=== PATIENT | male | born 1965 | race Caucasian/White ===

== ENCOUNTER → 2018-12-16 | Outpatient (CLI) | payer BC | END | disposition home or self-care (01) | LOC: LABPAT 07:45 | PROVIDERS: ATTEND Urology | DX: Z01.812 Encounter for preprocedural laboratory examination (principal); C61 Malignant neoplasm of prostate | CPT/HCPCS: 36415; 80048; 85025; 86850; 86900; 86901; 93005 ==

== ENCOUNTER 2018-12-25 10:19 | Inpatient (IN) | payer BC ==
[2018-12-16 08:43] LABS: Basophils # (A) 0.1 k/uL (0-0.2); Basophils % (A) 1 %; Eosinophils # (A) 0.2 k/uL (0-0.7); Eosinophils % (A) 2 %; HCT 43.8 % (39.0-53.0); HGB 15.1 gm/dL (13.0-17.5); Lymphocytes # (A) 3.3 k/uL (1.0-4.8); Lymphocytes % (A) 37 %; MCH 28.6 pg (25.0-35.0); MCHC 34.4 g/dL (31.0-37.0); Mean Platelet Volume 6.6; Monocytes # (A) 0.6 k/uL (0-1.0); Monocytes % (A) 7 %; Neutrophils # (A) 4.4 k/uL (1.3-7.7); Neutrophils % (A) 50 %; Platelet Count 312 k/uL (150-450); RBC 5.28 m/uL (4.30-5.90); RDW 14.1 % (11.5-15.5); WBC 8.8 k/uL (3.8-10.6)
[2018-12-16 09:06] LABS: Calcium 9.7 mg/dL (8.4-10.2); Potassium 4.3 mmol/L (3.5-5.1)
[2018-12-19 09:34] VITALS: BMI 34.4
[~2018-12-25 10:19] MED LIST: DEXAMETHASONE SOD PHOSPHATE 10 MG/ML 1 ML VIAL IV ONE; LIDOCAINE 1% 20 ML VIAL (10MG/ML) FOR IV START INTRADERMA PRN; MIDAZOLAM 2 MG/2 ML VIAL IV PRN
[2018-12-25] MEDS: LACTATED RINGERS 1,000 ML IV SCH ×2 (11:35→23:13)
[2018-12-25] MEDS: ONDANSETRON 4 MG/2 ML VIAL IVP ONE ×2 (11:35→17:32)
[2018-12-25] MEDS ORDERED: LIDOCAINE 1% 20 ML VIAL (10MG/ML) FOR IV START INTRADERMA ONE (11:35)
[2018-12-25] MEDS ORDERED: HEPARIN SODIUM,PORCINE 5,000 UNIT/ML 1 ML VIAL SQ ONE (12:00)
--- NOTE | 2018-12-25 12:18 | P.GSHP ---
History of Present Illness H&P Date: 12/25/18 Chief Complaint: Prostate cancer The patient is a 53-year-old white male found to have an elevated PSA level of 4.55. The prostate was palpably normal. He underwent a prostate ultrasound with biopsies, revealing prostate cancer in 8 of 12 biopsies. The majority of the biopsies were [place] 4+3. I had a lengthy discussion with the patient, reviewing alternative treatment options. He has elected to undergo a robotic- assisted laparoscopic prostatectomy and comes for this reason. He has been medically cleared. - Constitutional Constitutional: Denies chills, Denies fever - Cardiovascular Cardiovascular: Reports high blood pressure - Psychiatric Psychiatric: Reports depression Past Medical History Past Medical History: Asthma, Cancer, Hyperlipidemia, Hypertension Additional Past Medical History / Comment(s): prostate ca, melanoma removed History of Any Multi-Drug Resistant Organisms: None Reported Past Surgical History: Orthopedic Surgery, Tonsillectomy Additional Past Surgical History / Comment(s): rt hand index finger, colonoscopies, Past Anesthesia/Blood Transfusion Reactions: No Reported Reaction Smoking Status: Never smoker - Past Family History Father Family Medical History: Cancer Additional Family Medical History / Comment(s): melanoma Medications and Allergies Home Medications Medication Instructions Recorded Confirmed Type Albuterol Inhaler [Ventolin Hfa 1 puff IN DIRECTED PRN 12/16/18 12/25/18 Hist ory Inhaler] Cetirizine HCl [Zyrtec] 10 mg PO HS 12/16/18 12/25/18 History Colestoff 2 tab PO BID 12/16/18 12/25/18 History Ezetimibe [Zetia] 10 mg PO HS 12/16/18 12/25/18 History Fluticasone Nasal [place] [Flonase 1 spray NASAL DAILY PRN 12/16/18 12/25/18 History Nasal [place]] Lisinopril [Zestril] 10 mg PO HS 12/16/18 12/25/18 History Montelukast [Singulair] 10 mg PO DAILY 12/16/18 12/25/18 History Multivitamins, Thera [Multivitamin 2 tab PO QAM 12/16/18 12/25/18 History (formulary)] [place]-3 Fatty Acids/Fish Oil [Fish 1 tab PO DAILY 12/16/18 12/25/18 History Oil 1,000 mg Softgel] traZODone HCL [TraZODone HCl] 50 mg PO HS 12/16/18 12/25/18 History Allergies Allergy/AdvReac Type Severity Reaction Status Date / Time bee venom protein (honey bee) Allergy Swelling Verified 12/16/18 08:22 Macrolide Antibiotics Allergy Rash/Hives Verified 12/16/18 11:08 Surgical - Exam Vital Signs Temp Pulse Resp BP Pulse Ox 98.6 F 88 16 147/82 98 12/25/18 11:01 12/25/18 11:01 12/25/18 11:01 12/25/18 11:01 12/25/18 11:01 - General well developed, well nourished, no distress - Neck no masses, trachea midline - Respiratory normal respiratory effort, clear to auscultation - Cardiovascular Rhythm: regular Abnormal Heart Sounds: no systolic murmur, no diastolic murmur, no rub, no S3 Gallop, no S4 Gallop, no click, no other - Abdomen Abdomen: soft, non tender, no guarding, no rigid, no rebound Hernia: no none, no inguinal, no epigastric, no incisional, no reducible, no femoral, no umbilical, no scrotal, no incarcerated - Genitourinary normal penis with no external lesions, testicles non-tender - Rectum Rectum: normal sphincter tone, no masses, other (Prostate normal size and consistency) - Psychiatric oriented to time, oriented to person, oriented to place, speech is normal, memory intact Results - Labs 12/16/18 08:04 12/16/18 08:04 Assessment and Plan (1) Malignant neoplasm of prostate Current Visit: No Status: Acute Code(s): C61 - MALIGNANT NEOPLASM OF PROSTATE SNOMED Code(s): 691800516 Plan: Robotic-assisted laparoscopic prostatectomy (RALP) with bilateral pelvic lymphadenectomy. The procedure has been reviewed in detail with the patient and his . Potential risks have been reviewed, which include anesthesia, bleeding, infection, bowel injury, urinary leak, lymphocele, and vesical neck contracture. The patient is aware of the possible need for conversion to an open procedure. The scope of post-prostatectomy urinary incontinence has been reviewed, as well as the likelihood of erectile dysfunction. The patient is al so aware of the possible need for adjuvant therapy.
[2018-12-25] MEDS ORDERED: fentaNYL (PF) 50 MCG/ML 2 ML AMP ONE (12:32)
[2018-12-25] MEDS ORDERED: PROPOFOL 10 MG/ML 20 ML VIAL IV ONE (12:32)
[2018-12-25] MEDS ORDERED: ROCURONIUM BROMIDE 10 MG/ML 10 ML VIAL IV ONE (12:32)
[2018-12-25] MEDS ORDERED: MIDAZOLAM 2 MG/2 ML VIAL ONE (12:32)
[2018-12-25] MEDS ORDERED: LIDOCAINE 1% INJ 10MG/ML (20 ML MDV) ONE (12:32)
[2018-12-25] MEDS ORDERED: NEOSTIGMINE 1 MG/ML 10 ML VIAL ONE (12:32)
[2018-12-25] MEDS ORDERED: GLYCOPYRROLATE 0.2 MG/ML 2 ML VIAL ONE (12:32)
[2018-12-25] MEDS ORDERED: PHENYLEPHRINE-0.9% NACL SYG 1 MG/10 ML SYRINGE ONE (12:32)
[2018-12-25] MEDS ORDERED: LACTATED RINGERS 1,000 ML IV ONE ×5 (12:38→15:28)
[2018-12-25] MEDS ORDERED: BUPIVACAINE (PF) 0.5% 30 ML VIAL SQ ONE ×2 (13:15)
[2018-12-25] MEDS ORDERED: FLUTICASONE 50MCG/SPRAY NASAL 16GM NASAL PRN (17:28)
[2018-12-25] MEDS ORDERED: ALBUTEROL NEBULIZED 2.5 MG/3 ML INHALATION PRN (17:28)
--- NOTE | 2018-12-25 17:28 | P.OP ---
Date of Procedure: 12/25/18 Preoperative Diagnosis: Adenocarcinoma of the prostate Postoperative Diagnosis: Same Procedure(s) Performed: Robotic-assisted laparoscopic prostatectomy (RALP) with bilateral pelvic lymphadenectomy Anesthesia: GRACE Surgeon: Hardik Kaplan Supervisor [employer]fit[employer] #1: Fer Galvan Estimated Blood Loss (ml): 175 IV fluids (ml): 1,100 Condition: stable Disposition: PACU Indications for Procedure: The patient is a 53-year-old white male found to have an elevated PSA level of 4.55. The prostate was palpably normal. He underwent a prostate ultrasound with biopsies, revealing prostate cancer in 8 of 12 biopsies. The majority of the biopsies were [place] 4+3. I had a lengthy discussion with the patient, reviewing alternative treatment options. He has elected to undergo a robotic- assisted laparoscopic prostatectomy and comes for this reason. Operative Findings: No evidence of extraprostatic disease. Description of Procedure: The patient was taken in the operating room and placed in the dorsal lithotomy position, with his legs supported in Juan stirrups. He was carefully positioned on a beanbag for stability. The abdomen and external genitalia were prepped and draped sterilely. A Quintero catheter was inserted. The Veress needle was passed through the anterior abdominal wall immediately cephalad to the umbilicus, and insufflation was performed to a pressure of 20 mm Hg. Once insufflation was performed, the Veress needle was removed and a supraumbilical incision was made, through which a 12 mm camera port was placed. Under camera guidance, 3 8 mm robotic ports were placed, 2 on the left and one on the right. An additional 12 mm port was placed on the right lateral side for use as an administrative sales assistant port. A 5 mm port was placed to the right of the camera port for suction. The patient was placed in Trendelenburg position, and docking was then performed to the da Nile system utilizing a 4-arm approach. The abdomen was examined. The sigmoid colon was mobilized out of the pelvis. The peritoneum was incised lateral to the medial umbilical ligaments bilaterally, exposing the pubis. The peritoneum was then incised across the midline, allowing the bladder flap to be taken down. The endopelvic fascia was opened bilaterally, and muscular attachments from the urogenital diaphragm were swept away from the prostate. Bilateral pelvic lymphadenectomies were performed in the standard fashion. The peritoneal incisions were extended in a cephalad direction, and the vas deferens were divided bilaterally. Margins of dissection were the bifurcation of the iliac vessels proximally, the circumflex iliac vein distally, the external iliac artery laterally, and the obturator nerve medially. A combination of sharp and blunt dissection was used. Care was taken to avoid any neurovascular injury, and the use of monopolar electrocautery was avoided immediately adjacent to neurovascular structures. The lymphatic package was clipped distally. No enlarged lymph nodes were encountered. There were no complications. The vesical neck was incised transversely, down to the lumen. The Quintero catheter was brought out through the anterior vesical neck incision and was used for traction. The posterior aspect of the vesical neck was incised, such that the full-thickness of the vesical neck was divided. The anterior layer of the Denonvilliers fascia was incised, exposing the vas deferens. Each were isolated and divided. Next, each of the seminal vesicles were dissected away from adjacent tissues, and vascular attachments were cauterized and divided. The posterior leaf of Denonvilliers fascia was incised transversely, allowing entry into the plane between the prostate and rectum. With lateral spreading, this plane was developed down to the apex. This exposed the lateral vascular pedicles bilaterally. These were clipped and divided in an antegrade fashion, down to the apex. No attempt was made to preserve the neurovascular bundles, given the risk of extracapsular extension in view of the pathology. The remaining apical attachments were swept away from the prostate. The dorsal venous complex was incised, as well as periurethral tissue. The dorsal venous complex was broad, incorporating some of the muscular attachments, and is some blood loss to occur as the dorsal venous complex was divided. After dividing the dorsal venous complex, only the urethra remained intact. This was transected immediately distal to the prostatic apex using cold scissors. The specimen was placed within a specimen bag. The dorsal venous complex was sutured using a V-Loc suture in a running fashion. The suture was passed through the periosteum of the pubis periurethral support. A second V-Loc suture was then used to place the Garrison stitch, incorporating the rhabdosphincter and the edge of Denonvilliers fascia. This allowed the bladder to be taken down to the urethra, leaving the vesical neck immediately adjacent to the urethra. The vesicourethral anastomosis was then performed using a V-Loc suture in a running fashion. After completing the anastomosis, an 18-[place] Quintero catheter was placed and approximately 150 mL of 0.9 normal saline were instilled into the bladder. No extravasation of irrigant from the vesicourethral anastomosis was noted. Some oozing was noted from the periurethral tissues, but this essentially resolved after completing the anastomosis. Minimal oozing was noted from the vascular pedicles, so Surgicel was placed bilaterally. Tisseel was sprayed into the pelvis over the vascular pedicles, dorsal vein, and vesicourethral anastomosis. The patient was returned to the supine position. Undocking was performed, and the specimen bag sutures were passed through the camera port. After removing all the ports and allowing all of the CO2 to be released from the peritoneal cavity, the camera port incision was enlarged to allow removal of the surgical specimen. The fascia of this incision was then closed using 0 Vicryl suture in an interrupted [id number]-oluda fashion. Each of the skin incisions were then closed using 4-0 Monocryl suture in a subcuticular fashion. Marcaine was injected at each of the incision sites. Dermabond was applied to each incision. The Quintero catheter was connected to gravity drainage. All sponge and needle counts were correct. The patient tolerated the procedure well was taken to the recovery room in stable condition.
[2018-12-25] MEDS ORDERED: ONDANSETRON 4 MG/2 ML VIAL IVP PRN (17:29)
[2018-12-25] MEDS: HYDROmorphone 0.5 MG/0.5 ML SYRINGE IVP PRN ×3 (17:32→17:53)
[2018-12-25] MEDS: KETOROLAC 30 MG/ML 1 ML VIAL IVP PRN (17:44)
[2018-12-25] MEDS: HEPARIN SODIUM,PORCINE 5,000 UNIT/ML 1 ML VIAL SQ SCH (20:44)
[2018-12-25] MEDS: LISINOPRIL 10 MG TAB PO SCH (20:44)
[2018-12-25] MEDS: traZODone HCL 50 MG TAB PO SCH (20:44)
[2018-12-25] MEDS: EZETIMIBE 10 MG TAB PO SCH (20:44)
[2018-12-25] MEDS: NON-FORMULARY DRUG (Cetirizine Hcl [Zyrtec] 10 MG) PO SCH (20:45)
[2018-12-25] MEDS: DEXTROSE 5%-0.45% NACL 1,000 ML IV SCH ×2 (20:45→23:13)
[2018-12-25] MEDS: HYDROmorphone 1 MG/ML 1 ML SYRINGE IVP PRN (23:00)
[2018-12-26] MEDS: HYDROmorphone 1 MG/ML 1 ML SYRINGE IVP PRN ×3 (04:28→20:55)
--- NOTE | 2018-12-26 07:56 | P.PN ---
Subjective Progress Note Date: 12/26/18 Principal diagnosis: POD #1, s/p RALP The patient reports abdominal discomfort. He is trying not to move. He is drinking water without difficulty. He denies nausea. He denies dyspnea and chest pain. Objective - Vital Signs Vital signs: Vital Signs Temp 98.8 F 12/26/18 02:01 Pulse 89 12/26/18 02:01 Resp 18 12/26/18 02:01 BP 96/62 12/26/18 02:01 Pulse Ox 96 12/26/18 02:01 Intake & Output 12/25/18 12/26/18 12/26/18 18:59 06:59 18:59 Intake Total 1950 2580 Output Total 425 800 Balance 1525 1780 Weight 110.6 kg Intake: IV 1950 Intake, IV Titration 1250 Amount Dextrose 5%-0.45% NaCl 1, 1250 000 ml @ 125 mls/hr IV . Q8H BRIANNE Rx#:[id number] Oral 1330 Output: Urine 250 800 Uretheral (Quintero) 800 Estimated Blood Loss 175 Other: Voiding Method Indwelling Catheter - Constitutional General appearance: Present: cooperative, no acute distress - Gastrointestinal Gastrointestinal Comment(s): Soft, non-distended. Incisions clean, dry, and intact. - Psychiatric Psychiatric: Present: A&O x's 3 - Labs CBC & Chem 7: 12/16/18 08:04 12/16/18 08:04 Assessment and Plan (1) Malignant neoplasm of prostate Current Visit: No Status: Acute Code(s): C61 - MALIGNANT NEOPLASM OF PROSTATE SNOMED Code(s): 312755527 Plan: The patient's condition is stable. He was encouraged to ambulate, and to take oral analgesics rather than parenteral analgesics. His diet will be advanced as tolerated.
[2018-12-26] MEDS: KETOROLAC 30 MG/ML 1 ML VIAL IVP PRN (08:11)
[2018-12-26] MEDS: MONTELUKAST 10 MG TAB PO SCH (08:15)
[2018-12-26] MEDS: HEPARIN SODIUM,PORCINE 5,000 UNIT/ML 1 ML VIAL SQ SCH ×2 (08:15→20:55)
[2018-12-26] MEDS: DEXTROSE 5%-0.45% NACL 1,000 ML IV SCH ×2 (09:42→18:51)
[2018-12-26] MEDS ORDERED: CALCIUM CARBONATE 500 MG CHEWABLE PO PRN (19:24)
[2018-12-26] MEDS: LISINOPRIL 10 MG TAB PO SCH (20:55)
[2018-12-26] MEDS: traZODone HCL 50 MG TAB PO SCH (20:55)
[2018-12-26] MEDS: EZETIMIBE 10 MG TAB PO SCH (20:55)
[2018-12-26] MEDS: NON-FORMULARY DRUG (Cetirizine Hcl [Zyrtec] 10 MG) PO SCH (23:02)
[2018-12-27] MEDS: KETOROLAC 30 MG/ML 1 ML VIAL IVP PRN
[2018-12-27] MEDS: LACTATED RINGERS 1,000 ML IV SCH (00:52)
[2018-12-27] MEDS: DEXTROSE 5%-0.45% NACL 1,000 ML IV SCH ×2 (02:44→10:42)
--- NOTE | 2018-12-27 07:21 | P.DS ---
Providers Date of admission: 12/25/18 17:13 Attending physician: Hardik Kaplan Primary care physician: Stated None Hospital Course: The patient is 53. He has prostate cancer. He underwent a robotic-assisted radical prostatectomy by on 12/25/2018. He had moderate discomfort yesterday but today he is feeling better. His abdomen soft. His wound looks good. Passing gas. He is ambulating. His urine is clear. His vital signs are stable. He'll be discharged home. He'll follow-up in the office 01/03. He has been given a prescription of [place] and Zofran. Pathology is pending. Patient Condition at Discharge: Good Plan - Discharge Summary Discharge Rx Participant: Yes New Discharge Prescriptions: New HYDROcodone/APAP 5-325MG [[place] 5-325] 1 tab PO Q4HR PRN #14 tab PRN Reason: Pain Control Ondansetron HCl [Zofran] 4 mg PO Q6HR PRN #10 tablet PRN Reason: Nausea No Action Montelukast [Singulair] 10 mg PO DAILY [place] 2 tab PO BID Albuterol Inhaler [Ventolin Hfa Inhaler] 1 puff IN DIRECTED PRN PRN Reason: Shortness Of Breath Or Wheezing Cetirizine HCl [Zyrtec] 10 mg PO HS Ezetimibe [Zetia] 10 mg PO HS Fluticasone Nasal [employer] [Flonase Nasal [employer]] 1 spray NASAL DAILY PRN PRN Reason: allergies Lisinopril [Zestril] 10 mg PO HS Multivitamins, Thera [Multivitamin (formulary)] 2 tab PO QAM [place]-3 Fatty Acids/Fish Oil [Fish Oil 1,000 mg Softgel] 1 tab PO DAILY traZODone HCL [TraZODone HCl] 50 mg PO HS Discharge Medication List Albuterol Inhaler [Ventolin Hfa Inhaler] 1 puff IN DIRECTED PRN 12/16/18 [History] Cetirizine HCl [Zyrtec] 10 mg PO HS 12/16/18 [History] [place] 2 tab PO BID 12/16/18 [History] Ezetimibe [Zetia] 10 mg PO HS 12/16/18 [History] Fluticasone Nasal [employer] [Flonase Nasal [employer]] 1 spray NASAL DAILY PRN 12/16/18 [History] Lisinopril [Zestril] 10 mg PO HS 12/16/18 [History] Montelukast [Singulair] 10 mg PO DAILY 12/16/18 [History] Multivitamins, Thera [Multivitamin (formulary)] 2 tab PO QAM 12/16/18 [History] [place]-3 Fatty Acids/Fish Oil [Fish Oil 1,000 mg Softgel] 1 tab PO DAILY 12/16/18 [History] traZODone HCL [TraZODone HCl] 50 mg PO HS 12/16/18 [History] HYDROcodone/APAP 5-325MG [[place] 5-325] 1 tab PO Q4HR PRN #14 tab 12/27/18 [Rx] Ondansetron HCl [Zofran] 4 mg PO Q6HR PRN #10 tablet 12/27/18 [Rx] Follow up Appointment(s)/Referral(s): Hardik Kaplan MD [STAFF PHYSICIAN] - 01/03/19 Discharge Disposition: HOME SELF-CARE
[2018-12-27 07:34] VITALS: BP 123/73; PULSE 86; TEMP 99
[2018-12-27] MEDS: HEPARIN SODIUM,PORCINE 5,000 UNIT/ML 1 ML VIAL SQ SCH (09:52)
[2018-12-27] MEDS: MONTELUKAST 10 MG TAB PO SCH (09:52)
[2018-12-27 10:48] VITALS: RESP 16
--- NOTE | 2018-12-31 02:29 | CDI ---
Documentation Clarification Form Date: 12/31/2018 2:26:00 AM From: Humza Magallon Phone: call [phone] Admit Date: 12/25/2018 5:13:00 PM Patient Name: Daren Harvey Visit Number: [id number] Discharge Date: 12/27/2018 10:54:00 AM ATTENTION: The Clinical Documentation Specialists (CDI) and [facility] Coding Staff appreciate your assistance in clarifying documentation. Please respond to the clarification below the line at the bottom and electronically sign. The CDI & [facility] Coding staff will review the response and follow-up if needed. Please note: Queries are made part of the Legal Health Record. If you have any questions, please contact the author of this message via ITS. Dr. Kashif Baptiste, The final diagnosis of the pathology report states: "PERINEURAL INVASION: Present and multifocal." Documentation states:PROSTATE AND LYMPH NODES, RADICAL PROSTATECTOMY: [place] grade 4+3=7 adenocarcinoma involving prostate bilaterally. Patient history/risk factors: Prostate cancer. Treatment: Robotic prostatectomy. In your professional opinion, do you agree with the pathology report specifying PERINEURAL INVASION is identified ? Yes No Other (please specify) Unable to determine yes MTDD
== END 2018-12-27 10:54 | disposition home or self-care (01) | DRG 707 ==
LOC: OR 10:19 → 4SSUR 17:12 → OR 17:13
PROVIDERS: ADMIT Urology; ATTEND Urology
PROC: 8E0W4CZ Robotic Assisted Procedure of Trunk Region, Percutaneous Endoscopic Approach (ICD-10-PCS; principal; 2018-12-25 12:30)
PROC: 07TC4ZZ Resection of Pelvis Lymphatic, Percutaneous Endoscopic Approach (ICD-10-PCS; principal; 2018-12-25 12:30)
PROC: 0VT04ZZ Resection of Prostate, Percutaneous Endoscopic Approach (ICD-10-PCS; principal; 2018-12-25 12:30)
DX: C61 Malignant neoplasm of prostate (principal); C79.89 Secondary malignant neoplasm of other specified sites; E78.5 Hyperlipidemia, unspecified; I10 Essential (primary) hypertension; J45.909 Unspecified asthma, uncomplicated; R32 Unspecified urinary incontinence; Z79.899 Other long term (current) drug therapy; Z80.8 Family history of malignant neoplasm of other organs or systems; Z85.820 Personal history of malignant melanoma of skin; Z98.890 Other specified postprocedural states; Z90.89 Acquired absence of other organs; Z88.1 Allergy status to other antibiotic agents; Z91.030 Bee allergy status
CPT/HCPCS: 36415; 80048; 85025; 86850; 86900; 86901; 88307; 88309

== ENCOUNTER → 2019-01-29 | Outpatient (CLI) | payer BC | END | disposition home or self-care (01) | LOC: LABWHC1 11:08 | PROVIDERS: ATTEND Urology | DX: C61 Malignant neoplasm of prostate (principal) | CPT/HCPCS: 36415; 84153 ==

== ENCOUNTER → 2019-03-20 | Outpatient (CLI) | payer BC ==
[2019-03-20 10:56] LABS: Potassium 4.5 mmol/L (3.5-5.1)
[2019-03-20 11:01] LABS: HCT 43.1 % (39.0-53.0); HGB 14.6 gm/dL (13.0-17.5); MCH 28.3 pg (25.0-35.0); MCHC 33.9 g/dL (31.0-37.0); MCV 83.5 fL (80.0-100.0); Mean Platelet Volume 6.5; Platelet Count 297 k/uL (150-450); RBC 5.16 m/uL (4.30-5.90); RDW 13.5 % (11.5-15.5); WBC 8.8 k/uL (3.8-10.6)
== END | disposition home or self-care (01) ==
LOC: LABPAT 10:03
PROVIDERS: ATTEND Internal Medicine Interventional Cardiology
DX: Z01.812 Encounter for preprocedural laboratory examination (principal); R94.39 Abnormal result of other cardiovascular function study
CPT/HCPCS: 36415; 80051; 82565; 84520; 85027

== ENCOUNTER → 2019-03-21 | Day surgery (SDC) | payer BC ==
[2019-03-19 10:54] VITALS: BMI 34.4
[~2019-03-21] MED LIST changes: +ALPRAZolam 0.25 MG TAB PO PRN; +ALPRAZolam 0.5 MG TAB PO PRN; +ASPIRIN 325 MG TAB PO STA; +ATORVASTATIN 80 MG TAB PO STA; -DEXAMETHASONE SOD PHOSPHATE 10 MG/ML 1 ML VIAL IV ONE; +HEPARIN SODIUM 1,000 UN/ML (10ML VL) IV ONE; +HEPARIN SODIUM 1,000 UN/ML (10ML VL) ONE; +HYDROmorphone 1 MG/ML 1 ML SYRINGE IVP ONE; +HYDROmorphone 1 MG/ML 1 ML SYRINGE ONE; +IOPAMIDOL-370 125ML BTL INJ ONE; -LIDOCAINE 1% 20 ML VIAL (10MG/ML) FOR IV START INTRADERMA PRN; +LIDOCAINE 1% INJ 10MG/ML (20 ML MDV) ONE; +LIDOCAINE 1% INJ 10MG/ML (20 ML MDV) SQ ONE; +MIDAZOLAM 2 MG/2 ML VIAL IV ONE; -MIDAZOLAM 2 MG/2 ML VIAL IV PRN; +NITROGLYCERIN SL TABS 0.4 MG TAB SUBLINGUAL PRN; +RX INFO: IV CONTRAST WAS GIVEN 1 EACH MISC MISCELLANE PRN; +SODIUM CHLORIDE 0.9% 1,000 ML IV SCH; +SODIUM CHLORIDE 0.9% 1,000 ML in EMPTY BAG 1 BAG IV ONE; +VERAPAMIL 2.5 MG/ML 2 ML AMP ONE
[2019-03-21 09:37] VITALS: TEMP 98.3
[2019-03-21] MEDS: VERAPAMIL SYRINGE (5 MG/10 ML) INTRAARTER ONE ×2 (12:05→12:14)
--- NOTE | 2019-03-21 13:08 | CC ---
CARDIAC CATHETERIZATION REPORT DATE OF SERVICE: 03/21/2019 PERFORMING PHYSICIAN: Harjit Hernandez MD. PROCEDURE PERFORMED: 1. Selective right and left coronary angiogram. 2. Indication for study. 3. Left heart catheterization. INDICATION: This is a pleasant [age]-year-old gentleman with hypertension and dyslipidemia who was experiencing symptoms of chest discomfort. He underwent myocardial perfusion imaging stress test and that revealed ischemia and because of that, heart catheterization was advised. APPROACH: Right common femoral artery the site right radial artery. COMPLICATION: None. LEVEL OF SEDATION: Moderate with sedation length of 14 minutes. PROCEDURE DESCRIPTION: After obtaining an informed consent, the patient was brought to cardiac geochemical laboratory technician. The right common femoral artery site the right radial artery was cannulated using micropuncture technique, the micropuncture wire passed easily then I placed a 6-[place] sheath in the right radial artery. I did I did I did give the patient after that 2 mg of verapamil IA and units of heparin IV. Selective right and left coronary angiogram performed using JR4 and JL3.5 catheters. Left heart catheterization was performed. Six-Australian pigtail catheter. The procedure was completed without any complication. The coronary angiogram. 1. The right coronary artery is a large caliber vessel and is a dominant vessel. It is angiographically normal. Distally bifurcates into PDA and PLV branches both appeared to be angiographically normal. 2. The left main is angiographically normal it bifurcates into the circumflex and left anterior descending artery. 3. The left circumflex is a large caliber vessel it is a nondominant vessel. The proximal circumflex is normal the mid circumflex is normal and gives rise into a large OM branch which seems to be normal and the circumflex continued after that as a normal vessel as well. 4. The LAD, the proximal LAD, mid, and distal LAD appeared to be angiographically normal The LAD gives rise into the diagonal branch which seems to be normal. HEMODYNAMICS: The LVEDP was 10 mmHg without significant gradient across the aortic valve. CONCLUSION: 1. Normal coronary angiogram. 2. Normal left ventricular end-diastolic pressure. POSTPROCEDURE MANAGEMENT: 1. Medical treatment. 2. Follow up with the patient.. MMODL / IJN: [id number] /
[2019-03-21 14:06] VITALS: RESP 16
[2019-03-21 14:22] VITALS: BP 101/65; PULSE 72
== END ==
LOC: CATHCVL 08:43
PROVIDERS: ATTEND Internal Medicine Interventional Cardiology
DX: I20.0 Unstable angina (principal); R94.39 Abnormal result of other cardiovascular function study; I34.0 Nonrheumatic mitral (valve) insufficiency; I10 Essential (primary) hypertension; E78.5 Hyperlipidemia, unspecified; E78.00 Pure hypercholesterolemia, unspecified; E66.9 Obesity, unspecified; Z68.34 Body mass index [BMI] 34.0-34.9, adult; Z79.899 Other long term (current) drug therapy; Z88.0 Allergy status to penicillin
CPT/HCPCS: 93458; C1769 ×3; C1894; J2250; J2001; J1644; J1170; Q9967

== ENCOUNTER → 2019-05-13 | Outpatient (CLI) | payer BC | END | disposition home or self-care (01) | LOC: LABWHC1 09:11 | PROVIDERS: ATTEND Urology | DX: C61 Malignant neoplasm of prostate (principal) | CPT/HCPCS: 36415; 84153 ==

== ENCOUNTER → 2019-07-18 | Outpatient (CLI) | payer BC ==
--- NOTE | 2019-07-18 13:27 | US ---
EXAMINATION TYPE: US kidneys/renal and bladder DATE OF EXAM: 07/18/2019 COMPARISON: NONE CLINICAL HISTORY: R31.9 hematuria. Hematuria. EXAM MEASUREMENTS: Right Kidney: 11.8 x 4.5 x 3.8 cm Left Kidney: 10.8 x 4.2 x 4.6 cm Right Kidney: No hydronephrosis or masses seen Left Kidney: No hydronephrosis or masses seen Bladder: wnl Bilateral Jets seen: No There is no evidence for hydronephrosis at this point in time. No nephrolithiasis is seen. No francis s are identified. The urinary bladder is not greatly distended. When scanning right kidney visualize d liver is heterogeneously hyperechoic. IMPRESSION: Source of hematuria not identified. Advise further investigation with CT urogram if sympt oms persist.
== END | disposition home or self-care (01) ==
LOC: RADUSWWP 12:38
PROVIDERS: ATTEND Family Medicine
DX: R31.9 Hematuria, unspecified (principal)
CPT/HCPCS: 76770

== ENCOUNTER → 2020-01-12 | Outpatient (CLI) | payer BC ==
[2020-01-12 16:48] LABS: ALT 49 U/L (10-49); AST 39 U/L (14-35); African American GFR (CKD) 70.7 (60.0-200.0); Albumin/Globulin Ratio 2.75 (1.60-3.17); Alkaline Phosphatase 65 U/L (41-126); BUN/Creat Ratio 14.62 Ratio (12.00-20.00); Calcium 9.6 mg/dL (8.7-10.3); Carbon Dioxide 28.4 mmol/L (21.6-31.8); Chloride 101 mmol/L (96-109); Globulin 1.6 g/dL (1.6-3.3); Glucose 97 mg/dL (70-110); Potassium 4.2 mmol/L (3.5-5.5); Sodium 138 mmol/L (135-145); Total Bilirubin 0.7 mg/dL (0.2-1.2); Uric Acid 8.1 mg/dL (3.7-8.7)
[2020-01-12 16:59] LABS: Prostate Specific Antigen <0.1 ng/mL (0.0-3.5)
== END | disposition home or self-care (01) ==
LOC: LABWHC1 07:55
PROVIDERS: ATTEND Nurse Practitioner Adult Health
DX: I10 Essential (primary) hypertension (principal); M10.9 Gout, unspecified; C61 Malignant neoplasm of prostate
CPT/HCPCS: 36415; 80053; 84153; 84550

== ENCOUNTER → 2021-04-14 | Outpatient (CLI) | payer BC | END | disposition home or self-care (01) | LOC: LABWHC1 12:19 | PROVIDERS: ATTEND Urology | DX: C61 Malignant neoplasm of prostate (principal) | CPT/HCPCS: 36415; 84153 ==

== ENCOUNTER → 2021-06-08 | Outpatient (CLI) | payer BC ==
[2021-06-08 14:41] LABS: Basophils # (A) 0.09 X 10*3/uL (0.00-0.10); Basophils % (A) 1.2 %; Eosinophils # (A) 0.31 X 10*3/uL (0.04-0.35); HGB 15.3 g/dL (13.0-17.0); Immature Grans, Automated 0.5 %; Lymphocytes # (A) 2.37 X 10*3/uL (0.90-5.00); Lymphocytes % (A) 30.5 %; MCH 27.6 pg (27.0-32.0); MCHC 33.3 g/dL (32.0-37.0); MCV 82.9 fL (80.0-97.0); Mean Platelet Volume 9.7 fL (9.5-12.2); Monocytes # (A) 0.71 X 10*3/uL (0.20-1.00); Monocytes % (A) 9.1 %; NRBC Per 100 WBC 0 /100 WBCS (0.0-0.0); Neutrophils # (A) 4.26 X 10*3/uL (1.80-7.70); Neutrophils % (A) 54.7 %; Platelet Count 335 X 10*3/uL (140-440); RBC 5.55 X 10*6/uL (4.40-5.60); RDW 13.4 % (11.5-14.5); WBC 7.78 X 10*3/uL (4.50-10.00)
[2021-06-08 15:36] LABS: ALT 70 U/L (10-49); AST 46 U/L (14-35); African American GFR (CKD) 83.5 (60.0-200.0); Albumin 4.5 g/dL (3.8-4.9); Albumin/Globulin Ratio 2.08 (1.60-3.17); Alkaline Phosphatase 76 U/L (41-126); BUN/Creat Ratio 12.41 Ratio (12.00-20.00); Blood Urea Nitrogen 13.9 mg/dL (9.0-27.0); Carbon Dioxide 25.5 mmol/L (20.0-27.5); Chloride 100 mmol/L (96-109); Chol/HDL Ratio 5.38 Ratio; Creatine Kinase 443 U/L (35-257); Globulin 2.2 g/dL (1.6-3.3); Glucose 99 mg/dL (70-110); LDL Cholesterol,Calculated 155.6 mg/dL (0.0-131.0); Potassium 4.8 mmol/L (3.5-5.5); Sodium 140 mmol/L (135-145); Total Protein 6.7 g/dL (6.2-8.2); Uric Acid 6.7 mg/dL (3.7-8.7)
== END | disposition home or self-care (01) ==
LOC: LABWHC1 09:43
PROVIDERS: ATTEND Family Medicine
DX: Z00.00 Encounter for general adult medical examination without abnormal findings (principal)
CPT/HCPCS: 36415; 80053; 80061; 82550; 83036; 84153; 84443; 84550; 85025

== ENCOUNTER → 2021-06-23 | Outpatient (CLI) | payer BC ==
--- NOTE | 2021-06-23 16:37 | US ---
EXAMINATION TYPE: US groin RT DATE OF EXAM: 06/23/2021 COMPARISON: NONE CLINICAL HISTORY: 56-year-old male R19.00 INTRA ABD AND PELVIC SWELLING MASS AND LUMP. Palpable in ri ght groin, pt states he has multiple lumps and his father had multiple lipomas Technique: Multiple sonographic images at the patient's palpable site along the right inguinal region . FINDINGS: Belt Splicer notes: Hyperechoic area seen at palpable that is compressible and non vascular, 2.3 x 3.0 x 1.0cm probable lipoma IMPRESSION: Findings suggest a subcutaneous lipoma at the right inguinal palpable site measuring 3.0 x 2.3 x 1.0 cm. If symptomatic or growth is noted, surgical evaluation can be considered.
== END | disposition home or self-care (01) ==
LOC: RADUSWWP 15:25
PROVIDERS: ATTEND Family Medicine
DX: R19.00 Intra-abdominal and pelvic swelling, mass and lump, unspecified site (principal)

== ENCOUNTER → 2022-05-24 | Outpatient (CLI) | payer BC ==
[2022-05-24 19:27] LABS: Basophils # (A) 0.07 X 10*3/uL (0.00-0.10); Eosinophils # (A) 0.25 X 10*3/uL (0.04-0.35); Eosinophils % (A) 3.7 %; HCT 48.4 % (39.6-50.0); HGB 15.8 g/dL (13.0-17.0); Immature Grans, Automated 0.3 %; Lymphocytes # (A) 2.22 X 10*3/uL (0.90-5.00); Lymphocytes % (A) 32.5 %; MCH 27.5 pg (27.0-32.0); MCHC 32.6 g/dL (32.0-37.0); MCV 84.3 fL (80.0-97.0); Mean Platelet Volume 9.5 fL (9.5-12.2); Monocytes # (A) 0.56 X 10*3/uL (0.20-1.00); Monocytes % (A) 8.2 %; NRBC Per 100 WBC 0 /100 WBCS (0.0-0.0); Neutrophils # (A) 3.71 X 10*3/uL (1.80-7.70); Neutrophils % (A) 54.3 %; Platelet Count 323 X 10*3/uL (140-440); RBC 5.74 X 10*6/uL (4.40-5.60); RDW 13.7 % (11.5-14.5); WBC 6.83 X 10*3/uL (4.50-10.00)
[2022-05-24 19:56] LABS: ALT 58 U/L (10-49); AST 39 U/L (14-35); African American GFR (CKD) 69.2 (60.0-200.0); Albumin 4.5 g/dL (3.8-4.9); Albumin/Globulin Ratio 2.14 (1.60-3.17); Alkaline Phosphatase 67 U/L (41-126); BUN/Creat Ratio 13.38 Ratio (12.00-20.00); Blood Urea Nitrogen 17.4 mg/dL (9.0-27.0); Calcium 9.8 mg/dL (8.7-10.3); Carbon Dioxide 27.5 mmol/L (20.0-27.5); Chloride 99 mmol/L (96-109); Chol/HDL Ratio 5.87 Ratio; Globulin 2.1 g/dL (1.6-3.3); Glucose 103 mg/dL (70-110); LDL Cholesterol,Calculated 169.4 mg/dL (0.0-131.0); Non-African American GFR(CKD) 59.7 (60.0-200.0); Potassium 4.7 mmol/L (3.5-5.5); Sodium 138 mmol/L (135-145); Total Protein 6.6 g/dL (6.2-8.2); Uric Acid 8.2 mg/dL (3.7-8.7)
== END | disposition home or self-care (01) ==
LOC: LABWHC1 10:50
PROVIDERS: ATTEND Family Medicine
DX: C61 Malignant neoplasm of prostate (principal); E78.5 Hyperlipidemia, unspecified; M10.9 Gout, unspecified
CPT/HCPCS: 36415; 80053; 80061; 83036; 84153; 84550; 85025

== ENCOUNTER → 2023-05-18 | Outpatient (CLI) | payer BC | END | disposition home or self-care (01) | LOC: LABWHC1 07:22 | PROVIDERS: ATTEND Urology | DX: C61 Malignant neoplasm of prostate (principal) | CPT/HCPCS: 36415; 84153 ==

== ENCOUNTER → 2023-11-22 | Outpatient (CLI) | payer BC ==
[2023-11-22 15:45] LABS: Chol/HDL Ratio 5.34 Ratio; Uric Acid 8.4 mg/dL (3.7-8.7)
[2023-11-22 15:46] LABS: ALT 54 U/L (10-49); AST 43 U/L (14-35); Albumin 4.4 g/dL (3.8-4.9); Alkaline Phosphatase 77 U/L (41-126); BUN/Creat Ratio 15.91 Ratio (12.00-20.00); Blood Urea Nitrogen 17.5 mg/dL (9.0-27.0); Calcium 9.4 mg/dL (8.7-10.3); Carbon Dioxide 25.7 mmol/L (21.6-31.8); Chloride 102 mmol/L (96-109); Glucose 96 mg/dL (70-110); LDL Cholesterol,Calculated 168.5 mg/dL (0.0-131.0); Potassium 4.6 mmol/L (3.5-5.5); Prostate Specific Antigen 0.13 ng/mL (0.000-4.500); Sodium 139 mmol/L (135-145); Total Bilirubin 0.4 mg/dL (0.3-1.2); Total Protein 6.4 g/dL (6.2-8.2)
[2023-11-22 16:48] LABS: Basophils # (A) 0.06 X 10*3/uL (0.00-0.10); Basophils % (A) 0.9 %; Eosinophils # (A) 0.27 X 10*3/uL (0.04-0.35); Eosinophils % (A) 3.9 %; HCT 45.9 % (39.6-50.0); HGB 15.1 g/dL (13.0-17.0); Lymphocytes # (A) 1.82 X 10*3/uL (0.90-5.00); Lymphocytes % (A) 26.6 %; MCH 27.8 pg (27.0-32.0); MCHC 32.9 g/dL (32.0-37.0); MCV 84.5 FL (80.0-97.0); Monocytes # (A) 0.66 X 10*3/uL (0.20-1.00); Monocytes % (A) 9.6 %; NRBC Per 100 WBC 0 X 10*3/uL (0.00-0.01); Neutrophils # (A) 4.01 X 10*3/uL (1.80-7.70); Neutrophils % (A) 58.6 %; Platelet Count 299 X 10*3/uL (140-440); RBC 5.43 X 10*6/uL (4.40-5.60); RDW 13.5 % (11.5-14.5); WBC 6.85 X 10*3/uL (4.50-10.00)
== END | disposition home or self-care (01) ==
LOC: LABWHC1 07:56
PROVIDERS: ATTEND Family Medicine
DX: Z00.00 Encounter for general adult medical examination without abnormal findings (principal); Z12.5 Encounter for screening for malignant neoplasm of prostate; M10.9 Gout, unspecified
CPT/HCPCS: 36415; 80053; 80061; 83036; 84153; 84443; 84550; 85025

== ENCOUNTER → 2024-05-09 | Outpatient (CLI) | payer BC | END | disposition home or self-care (01) | LOC: LABWHC1 09:55 | PROVIDERS: ATTEND Radiology Radiation Oncology | DX: C61 Malignant neoplasm of prostate (principal); Z90.79 Acquired absence of other genital organ(s) | CPT/HCPCS: 36415; 84153 ==

== ENCOUNTER → 2024-07-26 | Outpatient (CLI) | payer BC ==
[2024-07-26 13:20] LABS: Basophils # (A) 0.03 X 10*3/uL (0.00-0.10); Basophils % (A) 0.6 %; Eosinophils # (A) 0.14 X 10*3/uL (0.04-0.35); Eosinophils % (A) 2.8 %; HCT 45.6 % (39.6-50.0); HGB 15.1 g/dL (13.0-17.0); Lymphocytes # (A) 1.08 X 10*3/uL (0.90-5.00); Lymphocytes % (A) 21.6 %; MCH 27.7 pg (27.0-32.0); MCHC 33.1 g/dL (32.0-37.0); MCV 83.5 FL (80.0-97.0); Mean Platelet Volume 9.4 FL (9.5-12.2); Monocytes # (A) 0.61 X 10*3/uL (0.20-1.00); Monocytes % (A) 12.2 %; NRBC Per 100 WBC 0 X 10*3/uL (0.00-0.01); Neutrophils # (A) 3.13 X 10*3/uL (1.80-7.70); Neutrophils % (A) 62.6 %; Platelet Count 289 X 10*3/uL (140-440); RBC 5.46 X 10*6/uL (4.40-5.60); RDW 13.6 % (11.5-14.5)
[2024-07-26 13:38] LABS: ALT 58 U/L (10-49); AST 47 U/L (14-35); Albumin 4.4 g/dL (3.8-4.9); Alkaline Phosphatase 73 U/L (41-126); BUN/Creat Ratio 13.55 Ratio (12.00-20.00); Blood Urea Nitrogen 14.9 mg/dL (9.0-27.0); Calcium 9.5 mg/dL (8.7-10.3); Carbon Dioxide 28.5 mmol/L (21.6-31.8); Chloride 100 mmol/L (96-109); Chol/HDL Ratio 3.27 Ratio; Creatine Kinase 400 U/L (35-257); Globulin 2.1 g/dL (1.6-3.3); Glucose 109 mg/dL (70-110); LDL Cholesterol,Calculated 80.1 mg/dL (0.0-131.0); Potassium 4.4 mmol/L (3.5-5.5); Sodium 138 mmol/L (135-145); Total Bilirubin 0.5 mg/dL (0.3-1.2); Total Protein 6.5 g/dL (6.2-8.2); Uric Acid 6.9 mg/dL (3.7-8.7)
[2024-07-26 14:00] LABS: Prostate Specific Antigen <0.01 ng/mL (0.000-4.500)
== END | disposition home or self-care (01) ==
LOC: LABWHC1 08:56
PROVIDERS: ATTEND Family Medicine
DX: Z00.00 Encounter for general adult medical examination without abnormal findings (principal); Z12.5 Encounter for screening for malignant neoplasm of prostate; E78.5 Hyperlipidemia, unspecified; M10.9 Gout, unspecified
CPT/HCPCS: 36415; 80053; 80061; 82550; 83036; 84153; 84443; 84550; 85025